=== PATIENT | male | born 1945 | race Caucasian/White ===

== ENCOUNTER 2021-08-15 15:46 | Inpatient (IN) ==
[2021-08-15] MEDS ORDERED: Lactated Ringers 1000 ml BAG 1,000 ML IV ONE ×3 (16:24→19:53)
[2021-08-15 17:16] LABS: Venous Bicarbonate HCO3 23.8 mmol/L (24-28)
[2021-08-15 17:20] LABS: Hematocrit 40 % (42-52); Hemoglobin 13.2 g/dL (14.0-18.0); Mean Corpuscular HGB Conc 33 g/dL (31-36); Mean Corpuscular Hemoglobin 26 pg (27-31); Mean Corpuscular Volume 79 fL (80-94); Mean Platelet Volume 7.2 fL (7.4-10.4); Platelet Count 214 10^3/uL (150-450); Red Blood Count 4.99 10^6 /uL (4.18-5.48); Red Cell Distribution Width 14 % (10-15); White Blood Count 29.1 10^3/uL (3.5-10.8)
[2021-08-15] MEDS ORDERED: methylPREDNISolone 125 mg 2 ML VIAL IV ONE (17:27)
[2021-08-15] MEDS ORDERED: Azithromycin 500 mg/250 ml NS 500 MG/250 ML BAG IVPB ONE (17:27)
[2021-08-15] MEDS ORDERED: cefTRIAXone 2 GM ADDV.VIAL 2 GM in NS 0.9% 100 ml BAG 100 ML IVPB ONE (17:27)
[2021-08-15 17:29] LABS: Activated Partial Thrombo Time 34.5 seconds (26.0-38.0); INR 1.48 (0.86-1.15)
[2021-08-15 17:35] LABS: ALT 69 U/L (7-52); AST 91 U/L (13-39); Albumin 3.8 g/dL (3.2-5.2); Albumin/Globulin Ratio 1.2 (1-3); Alkaline Phosphatase 87 U/L (35-149); Anion Gap 8 mmol/L (2-11); Blood Urea Nitrogen 34 mg/dL (6-24); C Reactive Protein 152.12 mg/L (<8.01); CO2 Carbon Dioxide 25 mmol/L (22-32); Calcium 9.5 mg/dL (8.6-10.3); Chloride 101 mmol/L (101-111); Globulin 3.2 g/dL (2-4); Glucose 139 mg/dL (70-100); Potassium 4.3 mmol/L (3.5-5.0); Sodium 134 mmol/L (135-145); eGFR CKD-EPI 55.2 (>60)
[2021-08-15 17:56] LABS: RBC Morphology Normal (Normal)
[2021-08-15 17:57] LABS: ABS Basophils 0.1 10^3/ul (0-0.2); ABS Lymphocytes 0.6 10^3/ul (1.0-4.8); ABS Monocytes 1.1 10^3/ul (0-0.8); ABS Neutrophils 27.3 10^3/ul (1.5-7.7); Lymphocyte % 2.2 %
[2021-08-15 18:47] LABS: LDH 306 U/L (140-271)
[2021-08-15 19:07] LABS: Ferritin 142.8 ng/mL (24-336)
[2021-08-15] MEDS ORDERED: Enoxaparin 40 MG/0.4 ML SYR SUBCUT SCH (21:00)
[2021-08-15 21:06] LABS: Troponin I 0.06 ng/mL (<0.03)
[2021-08-15] MEDS ORDERED: Albuterol 2.5mg/3 ml (0.083%) NEB.SOLN INH PRN (21:30)
[2021-08-15 22:09] LABS: Magnesium 1.4 mg/dL (1.9-2.7)
[2021-08-15] MEDS ORDERED: Magnesium Sulf 4 GM/100 ML IV 4,000 MG/100 ML BAG IVPB ONE (22:12)
[2021-08-15] MEDS ORDERED: Enoxaparin 30 MG/0.3 ML SYR SUBCUT ONE (23:38)
[2021-08-16] MEDS: NINTEDANIB 150 MG PO SCH ×3 (02:00→20:14)
[2021-08-16 04:59] LABS: Hematocrit 37 % (42-52); Hemoglobin 12.3 g/dL (14.0-18.0); Mean Corpuscular HGB Conc 33 g/dL (31-36); Mean Corpuscular Hemoglobin 26 pg (27-31); Mean Corpuscular Volume 79 fL (80-94); Mean Platelet Volume 6.8 fL (7.4-10.4); Platelet Count 174 10^3/uL (150-450); Red Blood Count 4.68 10^6 /uL (4.18-5.48); Red Cell Distribution Width 14 % (10-15); White Blood Count 22.6 10^3/uL (3.5-10.8)
[2021-08-16 05:14] LABS: Anion Gap 5 mmol/L (2-11); Blood Urea Nitrogen 23 mg/dL (6-24); CO2 Carbon Dioxide 27 mmol/L (22-32); Calcium 8.9 mg/dL (8.6-10.3); Chloride 103 mmol/L (101-111); Glucose 158 mg/dL (70-100); Magnesium 2.7 mg/dL (1.9-2.7); Potassium 4.5 mmol/L (3.5-5.0); Sodium 135 mmol/L (135-145); eGFR CKD-EPI 89.1 (>60)
[2021-08-16] MEDS: FLUTICAS/UMECLI/VILANT 200-62.5-25 MDI (NF) INH SCH (07:48)
[2021-08-16] MEDS ORDERED: cefTRIAXone 1 gm/50 mL NS BAG 1 GM/50 ML BAG IVPB SCH (08:00)
[2021-08-16] MEDS ORDERED: Albuterol/Ipratropium NEB.SOL (2.5/0.5 MG) 3 ML NEB.SOLN INH PRN (12:29)
[2021-08-16 15:20] LABS: Troponin I 0.04 ng/mL (<0.03)
[2021-08-16 15:54] LABS: Cholesterol 121 mg/dL; Creatine Kinase 41 U/L (10-223); LDL Cholesterol 67 mg/dL; Triglycerides 39 mg/dL
[2021-08-16] MEDS ORDERED: Azithromycin 500 mg/250 ml NS 500 MG/250 ML BAG IVPB SCH (17:00)
[2021-08-16] MEDS: cefTRIAXone 1 gm/50 mL NS BAG 1 GM/50 ML BAG IVPB SCH (17:44)
[2021-08-16 18:23] LABS: Ferritin 170.9 ng/mL (24-336)
[2021-08-17 06:15] LABS: Hematocrit 33 % (42-52); Hemoglobin 11.4 g/dL (14.0-18.0); Mean Corpuscular HGB Conc 34 g/dL (31-36); Mean Corpuscular Hemoglobin 27 pg (27-31); Mean Corpuscular Volume 79 fL (80-94); Platelet Count 183 10^3/uL (150-450); Red Blood Count 4.25 10^6 /uL (4.18-5.48); Red Cell Distribution Width 14 % (10-15); White Blood Count 18.4 10^3/uL (3.5-10.8)
[2021-08-17 06:33] LABS: Calcium 8.8 mg/dL (8.6-10.3); Potassium 4.8 mmol/L (3.5-5.0); eGFR CKD-EPI 92.3 (>60)
[2021-08-17] MEDS: NINTEDANIB 150 MG PO SCH (08:37)
[2021-08-17] MEDS ORDERED: Furosemide 40 mg/4 ml IV VIAL IV ONE (09:54)
[2021-08-17] MEDS: FLUTICAS/UMECLI/VILANT 200-62.5-25 MDI (NF) INH SCH (11:38)
[2021-08-17] MEDS ORDERED: Albuterol HFA INHALER 8 gm MDI INH PRN ×2 (11:40→17:04)
[2021-08-17] MEDS ORDERED: Albuterol/Ipratropium NEB.SOL (2.5/0.5 MG) 3 ML NEB.SOLN INH PRN (15:40)
[2021-08-17] MEDS: cefTRIAXone 1 gm/50 mL NS BAG 1 GM/50 ML BAG IVPB SCH (18:12)
[2021-08-17] MEDS: Albuterol/Ipratropium NEB.SOL (2.5/0.5 MG) 3 ML NEB.SOLN INH SCH (19:39)
[2021-08-17] MEDS: Enoxaparin 60 MG/0.6 ML SYR SUBCUT SCH (21:42)
[2021-08-18 05:50] LABS: Hematocrit 34 % (42-52); Hemoglobin 11.4 g/dL (14.0-18.0); Mean Corpuscular HGB Conc 34 g/dL (31-36); Mean Corpuscular Hemoglobin 26 pg (27-31); Mean Corpuscular Volume 78 fL (80-94); Mean Platelet Volume 6.8 fL (7.4-10.4); Platelet Count 209 10^3/uL (150-450); Red Blood Count 4.32 10^6 /uL (4.18-5.48); Red Cell Distribution Width 14 % (10-15); White Blood Count 14.2 10^3/uL (3.5-10.8)
[2021-08-18 06:10] LABS: Magnesium 1.8 mg/dL (1.9-2.7); Potassium 4.2 mmol/L (3.5-5.0); eGFR CKD-EPI 91.9 (>60)
[2021-08-18] MEDS ORDERED: Magnesium Sulfate IV 3 GM in NS 0.9% 100 ml BAG 100 ML IVPB ONE (07:30)
[2021-08-18] MEDS ORDERED: Furosemide 40 mg/4 ml IV VIAL IV ONE (07:56)
[2021-08-18] MEDS: Enoxaparin 60 MG/0.6 ML SYR SUBCUT SCH (08:40)
[2021-08-18] MEDS: FLUTICAS/UMECLI/VILANT 200-62.5-25 MDI (NF) INH SCH (08:42)
[2021-08-18] MEDS: Albuterol/Ipratropium NEB.SOL (2.5/0.5 MG) 3 ML NEB.SOLN INH SCH ×2 (08:42→19:35)
[2021-08-18] MEDS: methylPREDNISolone SOD 40 mg/ml 1 ml VIAL IV SCH ×2 (15:23→21:45)
[2021-08-18] MEDS: cefTRIAXone 1 gm/50 mL NS BAG 1 GM/50 ML BAG IVPB SCH (18:45)
[2021-08-19 05:41] LABS: Hematocrit 40 % (42-52); Hemoglobin 13.2 g/dL (14.0-18.0); Mean Corpuscular HGB Conc 33 g/dL (31-36); Mean Corpuscular Hemoglobin 27 pg (27-31); Mean Corpuscular Volume 80 fL (80-94); Mean Platelet Volume 6.7 fL (7.4-10.4); Platelet Count 273 10^3/uL (150-450); Red Blood Count 4.98 10^6 /uL (4.18-5.48); Red Cell Distribution Width 15 % (10-15); White Blood Count 14.8 10^3/uL (3.5-10.8)
[2021-08-19 06:01] LABS: Calcium 9.4 mg/dL (8.6-10.3); Magnesium 2.1 mg/dL (1.9-2.7); Potassium 4.8 mmol/L (3.5-5.0); eGFR CKD-EPI 84.5 (>60)
[2021-08-19] MEDS: methylPREDNISolone SOD 40 mg/ml 1 ml VIAL IV SCH ×2 (06:13→14:19)
[2021-08-19] MEDS: FLUTICAS/UMECLI/VILANT 200-62.5-25 MDI (NF) INH SCH ×2 (06:53→07:03)
[2021-08-19] MEDS: Albuterol/Ipratropium NEB.SOL (2.5/0.5 MG) 3 ML NEB.SOLN INH SCH (06:53)
[2021-08-19 08:40] LABS: % Iron Saturation 6 % (14 - 50); Total Iron Binding Capacity 230 mcg/dL (250 - 400); Transferrin 195 mg/dL (200 - 360)
[2021-08-19 11:28] VITALS: BP 120/70
== END 2021-08-19 15:15 | disposition home or self-care (01) | DRG 871 ==
LOC: ED 15:46 → SUATTDRO 19:46 → EDHOLD 19:46 → SSU 08-16 01:23
PROVIDERS: ADMIT Hospitalist; ATTEND Internal Medicine

== ENCOUNTER 2023-03-16 09:47 | Observation (INO) ==
[2023-03-16] MEDS ORDERED: Albuterol/Ipratropium NEB.SOL (2.5/0.5 MG) 3 ML NEB.SOLN INH ONE (09:52)
[2023-03-16] MEDS ORDERED: methylPREDNISolone SOD SUCC 125 mg 2 ML VIAL IV ONE (09:52)
[2023-03-16] MEDS ORDERED: Albuterol/Ipratropium NEB.SOL (2.5/0.5 MG) 3 ML NEB.SOLN ONE (09:54)
[2023-03-16 10:38] LABS: Albumin 3.8 g/dL (3.2-5.2); Albumin/Globulin Ratio 1.5 (1-3); Calcium 8.9 mg/dL (8.6-10.3); Creatinine, Serum 1.04 mg/dL (0.67-1.17); Globulin 2.5 g/dL (2-4); Potassium 4.5 mmol/L (3.5-5.0); Total Bilirubin 0.6 mg/dL (0.2-1.0); Total Protein 6.3 g/dL (6.4-8.9)
[2023-03-16 10:40] LABS: ABS Lymphocytes 1.6 10^3/uL (1.0-4.8); ABS Monocytes 0.2 10^3/uL (0.0-1.1); ABS Neutrophils 14.5 10^3/uL (1.5-7.6); Eosinophil % 0.3 %; Hemoglobin 14.1 g/dL (13.2-16.3); Mean Corpuscular Hemoglobin 26.1 pg (27-33); Mean Corpuscular Hgb Conc 32.9 g/dL (31-36); Mean Corpuscular Volume 79.4 fL (80-97); Mean Platelet Volume 7.3 fL (7.5-11.2); Platelet Count 241 10^3/uL (150-450); Red Blood Count 5.41 10^6/uL (4.06-5.63); Red Cell Distribution Width 17.2 % (12-17); White Blood Count 16.5 10^3/uL (3.6-10.2)
[2023-03-16] MEDS ORDERED: Azithromycin 500 mg/250 ml NS 500 MG/250 ML BAG IVPB ONE (11:06)
[2023-03-16] MEDS ORDERED: cefTRIAXone 2 GM ADDV.VIAL 2 GM in NS 0.9% 100 ml BAG 100 ML IV ONE (11:06)
[2023-03-16] MEDS ORDERED: cefTRIAXone 2 gm/50 mL D5W 2 GM/50 ML BAG IV ONE (11:30)
[2023-03-16 12:56] LABS: C Reactive Protein 2.45 mg/L (<8.01); Magnesium 1.6 mg/dL (1.9-2.7); Phosphorus 4.9 mg/dL (2.5-5.0)
[2023-03-16] MEDS ORDERED: Albuterol HFA INHALER 8 gm MDI INH PRN (14:13)
[2023-03-16] MEDS ORDERED: Albuterol/Ipratropium NEB.SOL (2.5/0.5 MG) 3 ML NEB.SOLN INH PRN (14:16)
[2023-03-16] MEDS ORDERED: Magnesium Sulfate IV 3 GM in NS 0.9% 100 ml BAG 100 ML IVPB ONE (14:19)
[2023-03-16 14:36] LABS: Erythrocyte Sed Rate 2 mm/Hr (0-19)
[2023-03-16] MEDS ORDERED: Lactated Ringers 1000 ml BAG 1,000 ML IV SCH (15:00)
[2023-03-16 15:09] LABS: TSH Ultra Thyroid Stim Horm 1.62 mcIU/mL (0.34-5.60)
[2023-03-16] MEDS ORDERED: Azithromycin 500 mg/250 ml NS 500 MG/250 ML BAG IVPB SCH ×3 (16:00→20:00)
[2023-03-17 06:59] LABS: Hematocrit 33.8 % (38-53); Hemoglobin 11.3 g/dL (13.2-16.3); Mean Corpuscular Hemoglobin 26.1 pg (27-33); Mean Corpuscular Hgb Conc 33.4 g/dL (31-36); Mean Corpuscular Volume 78.2 fL (80-97); Mean Platelet Volume 7.1 fL (7.5-11.2); Platelet Count 151 10^3/uL (150-450); Red Blood Count 4.32 10^6/uL (4.06-5.63); White Blood Count 22.2 10^3/uL (3.6-10.2)
[2023-03-17 07:19] LABS: Calcium 8.6 mg/dL (8.6-10.3); Creatinine, Serum 0.82 mg/dL (0.67-1.17); Potassium 4.6 mmol/L (3.5-5.0); eGFR CKD-EPI 90.5 (>60)
[2023-03-17 07:55] LABS: ABS Lymphocytes 0.7 10^3/uL (1.0-4.8); ABS Monocytes 0.9 10^3/uL (0.0-1.1); ABS Neutrophils 20.5 10^3/uL (1.5-7.6); ABS Nucleated RBC 0.01 10^3/ul; Lymphocyte % 3.3 %
[2023-03-17] MEDS ORDERED: FLUTICAS/UMECLI/VILANT 200-62.5-25 MDI (NF) INH SCH (09:00)
[2023-03-17 11:57] VITALS: BP 95/57
[2023-03-17] MEDS ORDERED: cefTRIAXone 1 gm/50 mL D5W 1 GM/50 ML BAG IV SCH (12:00)
== END 2023-03-17 13:13 | disposition home or self-care (01) ==
LOC: EDHOLD 09:47 → ED 09:47 → MEDTELE 17:49
PROVIDERS: ADMIT Internal Medicine; ATTEND Internal Medicine

== ENCOUNTER 2023-04-07 14:50 | Inpatient (IN) ==
[2023-04-07] MEDS ORDERED: Albuterol 2.5mg/3 ml (0.083%) NEB.SOLN INH ONE ×2 (15:59→16:09)
[2023-04-07] MEDS ORDERED: Cefepime 2 GM in Dextrose 2 GM/50 ML BAG IV ONE (16:31)
[2023-04-07] MEDS ORDERED: Azithromycin 500 mg/250 ml NS 500 MG/250 ML BAG IVPB ONE (16:31)
[2023-04-07 16:34] LABS: ABS Basophils 0.1 10^3/uL (0.0-0.1); ABS Lymphocytes 0.9 10^3/uL (1.0-4.8); ABS Neutrophils 12.7 10^3/uL (1.5-7.6); ABS Nucleated RBC 0.01 10^3/ul; Hematocrit 37.2 % (38-53); Hemoglobin 12.4 g/dL (13.2-16.3); Lymphocyte % 5.8 %; Mean Corpuscular Hemoglobin 26.4 pg (27-33); Mean Corpuscular Hgb Conc 33.5 g/dL (31-36); Mean Corpuscular Volume 78.8 fL (80-97); Mean Platelet Volume 6.9 fL (7.5-11.2); Platelet Count 176 10^3/uL (150-450); Red Blood Count 4.72 10^6/uL (4.06-5.63); Red Cell Distribution Width 17.7 % (12-17); White Blood Count 14.7 10^3/uL (3.6-10.2)
[2023-04-07 16:47] LABS: Albumin 3.6 g/dL (3.2-5.2); Albumin/Globulin Ratio 1.2 (1-3); C Reactive Protein 208.68 mg/L (<8.01); Calcium 9.1 mg/dL (8.6-10.3); Creatinine, Serum 0.97 mg/dL (0.67-1.17); Potassium 4.6 mmol/L (3.5-5.0); Total Protein 6.6 g/dL (6.4-8.9); eGFR CKD-EPI 80.4 (>60)
[2023-04-07] MEDS ORDERED: Lactated Ringers 1000 ml BAG 1,000 ML IV ONE (17:31)
[2023-04-07] MEDS ORDERED: methylPREDNISolone SOD SUCC 125 mg 2 ML VIAL IV ONE (17:48)
[2023-04-07 18:32] LABS: Urine Appearance Cloudy; Urine Bilirubin Negative (Negative); Urine Blood Negative (Negative); Urine Color Amber; Urine Glucose Negative (Negative); Urine Ketones Negative (Negative); Urine Nitrite Negative (Negative); Urine Protein Negative (Negative); Urine Specific Gravity 1.019 (1.002-1.030); Urine Urobilinogen Negative (Negative)
[2023-04-07] MEDS ORDERED: Furosemide 40 mg/4 ml IV VIAL IV SLOW PU ONE (18:37)
[2023-04-07] MEDS: Albuterol/Ipratropium NEB.SOL (2.5/0.5 MG) 3 ML NEB.SOLN INH SCH (20:28)
[2023-04-08 01:19] LABS: Calcium 8.4 mg/dL (8.6-10.3); Magnesium 1.6 mg/dL (1.9-2.7); Potassium 4.3 mmol/L (3.5-5.0)
[2023-04-08 01:24] LABS: Creatinine, Serum 1.11 mg/dL (0.67-1.17); eGFR CKD-EPI 68.4 (>60)
[2023-04-08] MEDS ORDERED: Magnesium Sulf 4 GM/100 ML IV 4,000 MG/100 ML BAG IVPB ONE (01:43)
[2023-04-08] MEDS: methylPREDNISolone SOD SUCC 40 mg/ml 1 ml VIAL IV SCH ×3 (01:58→17:46)
[2023-04-08] MEDS ORDERED: cefTRIAXone 1 gm/50 mL D5W 1 GM/50 ML BAG IV SCH (06:00)
[2023-04-08 07:05] LABS: Hematocrit 31.8 % (38-53); Hemoglobin 10.8 g/dL (13.2-16.3); Mean Corpuscular Hemoglobin 26.2 pg (27-33); Mean Corpuscular Hgb Conc 33.8 g/dL (31-36); Mean Corpuscular Volume 77.6 fL (80-97); Mean Platelet Volume 6.7 fL (7.5-11.2); Platelet Count 159 10^3/uL (150-450); Red Cell Distribution Width 16.9 % (12-17); White Blood Count 12.3 10^3/uL (3.6-10.2)
[2023-04-08 07:11] LABS: Calcium 8.9 mg/dL (8.6-10.3); Creatinine, Serum 0.88 mg/dL (0.67-1.17); Magnesium 3.2 mg/dL (1.9-2.7); Potassium 4.1 mmol/L (3.5-5.0); eGFR CKD-EPI 88.6 (>60)
[2023-04-08] MEDS: Pantoprazole VIAL 40 MG VIAL IV SCH (08:07)
[2023-04-08] MEDS: Albuterol/Ipratropium NEB.SOL (2.5/0.5 MG) 3 ML NEB.SOLN INH SCH ×4 (08:14→19:47)
[2023-04-08] MEDS: Mometasone/Formoter 200/5 MDI INH SCH ×2 (08:16→19:42)
[2023-04-08] MEDS ORDERED: Omeprazole 20 mg CAP (NF) PO SCH (09:00)
[2023-04-08] MEDS ORDERED: Vancomycin per Pharmacy 1 EA NOTE FOLLOW UP SCH (10:00)
[2023-04-08] MEDS ORDERED: Zosyn per Pharmacy NOTE FOLLOW UP SCH (10:00)
[2023-04-08] MEDS ORDERED: Vancomycin 1000 MG in NS 0.9% 250 ML IVPB ONE (10:30)
[2023-04-08] MEDS ORDERED: ZOSYN 3.375 GM x ONE DOSE over 30 miuntes IV (11:00)
[2023-04-08 11:38] LABS: High Sensitivity Troponin 1 Hr 9 pg/mL (<20)
[2023-04-08 13:37] LABS: High Sensitivity Troponin 3 Hr 9 pg/mL (<20)
[2023-04-08] MEDS: ZOSYN 3.375 GM Q8H per EXTENDED INFUSION IV SCH ×2 (16:19→23:59)
[2023-04-08] MEDS: Azithromycin 500 mg/250 ml NS 500 MG/250 ML BAG IVPB SCH (17:46)
[2023-04-08] MEDS: Vancomycin 750 MG in NS 0.9% 250 ML IVPB SCH (23:59)
[2023-04-09] MEDS: methylPREDNISolone SOD SUCC 40 mg/ml 1 ml VIAL IV SCH ×3 (01:59→18:09)
[2023-04-09 07:16] LABS: Creatinine, Serum 0.89 mg/dL (0.67-1.17); eGFR CKD-EPI 88.3 (>60)
[2023-04-09] MEDS: Albuterol/Ipratropium NEB.SOL (2.5/0.5 MG) 3 ML NEB.SOLN INH SCH ×4 (07:41→19:22)
[2023-04-09] MEDS: Mometasone/Formoter 200/5 MDI INH SCH ×2 (07:42→19:18)
[2023-04-09] MEDS: ZOSYN 3.375 GM Q8H per EXTENDED INFUSION IV SCH ×3 (09:57→23:57)
[2023-04-09] MEDS: Pantoprazole VIAL 40 MG VIAL IV SCH (09:58)
[2023-04-09] MEDS: Vancomycin 750 MG in NS 0.9% 250 ML IVPB SCH ×2 (12:07→23:58)
[2023-04-09] MEDS: Azithromycin 500 mg/250 ml NS 500 MG/250 ML BAG IVPB SCH (18:09)
[2023-04-10 06:15] LABS: ABS Lymphocytes 0.4 10^3/uL (1.0-4.8); ABS Monocytes 0.6 10^3/uL (0.0-1.1); ABS Neutrophils 14.8 10^3/uL (1.5-7.6); Hematocrit 29.7 % (38-53); Hemoglobin 10.1 g/dL (13.2-16.3); Lymphocyte % 2.5 %; Mean Corpuscular Hemoglobin 26.4 pg (27-33); Mean Corpuscular Hgb Conc 33.9 g/dL (31-36); Mean Corpuscular Volume 77.7 fL (80-97); Mean Platelet Volume 6.9 fL (7.5-11.2); Platelet Count 213 10^3/uL (150-450); Red Blood Count 3.83 10^6/uL (4.06-5.63); Red Cell Distribution Width 17.3 % (12-17); White Blood Count 15.9 10^3/uL (3.6-10.2)
[2023-04-10] MEDS: Albuterol/Ipratropium NEB.SOL (2.5/0.5 MG) 3 ML NEB.SOLN INH SCH ×4 (07:48→20:54)
[2023-04-10] MEDS: Mometasone/Formoter 200/5 MDI INH SCH ×2 (07:50→20:53)
[2023-04-10] MEDS: Pantoprazole VIAL 40 MG VIAL IV SCH (08:35)
[2023-04-10] MEDS: ZOSYN 3.375 GM Q8H per EXTENDED INFUSION IV SCH (08:35)
[2023-04-10] MEDS ORDERED: Vancomycin Trough Check NOTE FOLLOW UP ONE (11:30)
[2023-04-10] MEDS ORDERED: Acetylcysteine 600mgCAP(RENAL) PO ONE (11:40)
[2023-04-10] MEDS: Azithromycin 500 mg/250 ml NS 500 MG/250 ML BAG IVPB SCH (17:36)
[2023-04-11 06:22] LABS: Hematocrit 30.7 % (38-53); Hemoglobin 10.3 g/dL (13.2-16.3); Mean Corpuscular Hemoglobin 26.4 pg (27-33); Mean Corpuscular Hgb Conc 33.6 g/dL (31-36); Mean Corpuscular Volume 78.8 fL (80-97); Mean Platelet Volume 6.8 fL (7.5-11.2); Platelet Count 208 10^3/uL (150-450); Red Cell Distribution Width 17.6 % (12-17); White Blood Count 15.1 10^3/uL (3.6-10.2)
[2023-04-11 06:51] LABS: Albumin 2.8 g/dL (3.2-5.2); Albumin/Globulin Ratio 1.2 (1-3); Calcium 8.7 mg/dL (8.6-10.3); Creatinine, Serum 0.8 mg/dL (0.67-1.17); Globulin 2.4 g/dL (2-4); Potassium 5.2 mmol/L (3.5-5.0); Total Bilirubin 0.3 mg/dL (0.2-1.0); Total Protein 5.2 g/dL (6.4-8.9); eGFR CKD-EPI 91.1 (>60)
[2023-04-11] MEDS: Mometasone/Formoter 200/5 MDI INH SCH (07:42)
[2023-04-11] MEDS: Albuterol/Ipratropium NEB.SOL (2.5/0.5 MG) 3 ML NEB.SOLN INH SCH ×3 (07:42→15:10)
[2023-04-11 08:18] LABS: Acanthocytes 1+; RBC Morphology Normal (Normal)
[2023-04-11] MEDS: SODIUM ZIRCONIUM CYCLOSILICATE 10 GM PACKET PO SCH ×2 (08:18→08:20)
[2023-04-11] MEDS: Pantoprazole VIAL 40 MG VIAL IV SCH (08:18)
[2023-04-11 08:19] LABS: Anisocytosis 1+; Microcytosis 1+
[2023-04-11 08:21] LABS: ABS Lymphocytes 0.5 10^3/uL (1.0-4.8); ABS Monocytes 0.6 10^3/uL (0.0-1.1); ABS Nucleated RBC 0.01 10^3/ul; Lymphocyte % 3.2 %; Nucleated Red Blood Cells % 0.1 /100 WBC (0.0-0.4)
[2023-04-11 13:36] LABS: Creatinine, Serum 0.79 mg/dL (0.67-1.17); Potassium 4.4 mmol/L (3.5-5.0); eGFR CKD-EPI 91.5 (>60)
[2023-04-11 15:28] VITALS: BP 124/79
== END 2023-04-11 16:55 | disposition home or self-care (01) | DRG 871 ==
LOC: ED 14:50 → EDHOLD 14:50 → SUATTDRO 17:45 → MED 19:52
PROVIDERS: ADMIT Internal Medicine; ATTEND Internal Medicine